=== PATIENT | female | born 1970 | race Caucasian/White ===

== ENCOUNTER 2021-07-05 07:39 | Day surgery (SDC) | payer BC ==
[2021-06-30 08:05] LABS: Hemoglobin 13.7 g/dL (12.0-15.5); Mean Corpuscular Hemoglobin 30.9 pg (27.0-33.0); Mean Corpuscular Volume 93.5 fl (81.6-98.3); Mean Platelet Volume 10.3 fl (7.4-10.4); Platelet Count 248 10x3/uL (150-450); RBC Distribution Width 12.6 % (11.5-14.5); Red Blood Cell (RBC) Count 4.44 10x6/uL (3.90-5.03); White Blood Cell (WBC) Count 5.3 10x3/uL (3.5-10.5)
[2021-06-30 08:24] LABS: BHCG - Serum Negative (NEGATIVE); Pregs Control Background? CLEAR/WHITE (CLR/WHITE); Pregs Control Bar Appear? YES (CONTROL BAR)
[2021-06-30 13:11] VITALS: BMI 35.4
[2021-06-30 20:46] LABS: SARS-CoV-2 PCR by NAA Not Detected (NotDetected)
[2021-07-05] MEDS ORDERED: Scopolamine 1.5 mg/72 hour Patch ONE (09:13)
[2021-07-05] MEDS ORDERED: Lidocaine 1% MPF 2 ML VIAL ONE (09:23)
[2021-07-05] MEDS ORDERED: PROPOFOL 20 ML ONE (09:51)
[2021-07-05] MEDS ORDERED: Fentanyl 100 MCG/2 ML VIAL ONE ×2 (09:51→10:43)
[2021-07-05] MEDS ORDERED: Dexamethasone 4 mg/ml Vial ONE (09:53)
[2021-07-05] MEDS ORDERED: Metoclopramide HCl 10 MG/2 ML VIAL ONE (09:53)
[2021-07-05] MEDS ORDERED: Lidocaine 1% PF 5 ML VIAL ONE (09:53)
[2021-07-05] MEDS ORDERED: Rocuronium Bromide 10 MG/ML (10ML VIAL) ONE (09:53)
[2021-07-05] MEDS ORDERED: Bupivacaine 0.25% HCL 30 ML VIAL ONE (09:59)
[2021-07-05] MEDS ORDERED: Bupivacaine PF 0.5% 30 ML VIAL ONE (09:59)
[2021-07-05] MEDS ORDERED: Midazolam HCl 2 mg/2 ml Vial ONE (09:59)
[2021-07-05] MEDS ORDERED: EPINEPHrine 1 MG/ML AMP ONE (09:59)
[2021-07-05] MEDS ORDERED: ceFAZolin 2 GM/Dextrose 50 ML IVPB ONE (10:10)
[2021-07-05] MEDS ORDERED: Ketorolac Tromethamine 30 MG/ML VIAL ONE (11:25)
[2021-07-05] MEDS ORDERED: Glycopyrrolate 0.2 MG/ML 5 ML SYRINGE ONE (11:25)
[2021-07-05] MEDS ORDERED: HYDROcodone/Acetaminophen 5/325 mg Tablet ONE (12:49)
== END 2021-07-05 13:10 | disposition home or self-care (01) ==
LOC: CSHSDC 07:39
PROVIDERS: ATTEND Obstetrics & Gynecology
PROC: 0FT44ZZ Resection of Gallbladder, Percutaneous Endoscopic Approach (ICD-10-PCS; principal; 2021-07-05)
PROC: 0UT14ZZ Resection of Left Ovary, Percutaneous Endoscopic Approach (ICD-10-PCS; principal; 2021-07-05)
PROC: 0UT64ZZ Resection of Left Fallopian Tube, Percutaneous Endoscopic Approach (ICD-10-PCS; principal; 2021-07-05)
PROC: 8E0W4CZ Robotic Assisted Procedure of Trunk Region, Percutaneous Endoscopic Approach (ICD-10-PCS; principal; 2021-07-05)
DX: D27.1 Benign neoplasm of left ovary (principal); K80.10 Calculus of gallbladder with chronic cholecystitis without obstruction; K21.9 Gastro-esophageal reflux disease without esophagitis; Z79.2 Long term (current) use of antibiotics; Z79.899 Other long term (current) drug therapy; Z20.822 Contact with and (suspected) exposure to COVID-19; G25.81 Restless legs syndrome
CPT/HCPCS: 36415; 84703; 85027; 86850; 86900; 86901; 88304; 88307; C1713; J0171; J0690; J1100; J1885; J2250; J2704; J2765; J3010; S0020; U0003; U0005

== ENCOUNTER 2025-01-08 04:33 | Emergency (ER) | payer BC, OTHER ==
[2025-01-08 04:56] LABS: #Basophils Less than 0.03 10x3/uL (0.0-0.2); #Eosinophils 0.11 10x3/uL (0.0-0.5); #Monocytes 0.95 10x3/uL (0.0-1.1); #Neutrophils 4.82 10x3/uL (1.5-8.4); %Basophils 0.3 % (0.0-2.0); %Eosinophils 1.5 % (0.0-6.0); %Lymphocytes 19.6 % (18.0-47.0); %Monocytes 12.9 % (0.0-10.0); %Neutrophils 65.6 % (40.0-75.0); Hematocrit 45.9 % (34.9-44.5); Hemoglobin 15.8 g/dL (12.0-15.5); Mean Corpuscular Hemoglobin 30.3 pg (27.0-33.0); Mean Corpuscular Volume 87.9 fL (81.6-98.3); Platelet Count 269 10x3/uL (150-450); Red Blood Cell (RBC) Count 5.22 10x6/uL (3.90-5.03); White Blood Cell (WBC) Count 7.35 10x3/uL (3.5-10.5)
[2025-01-08] MEDS ORDERED: Famotidine/PF 20 mg/2ml Vial ONE (04:56)
[2025-01-08 04:58] LABS: Glucose, Urine (Dipstick) Normal (Negative); Leukocyte Negative (Negative); Protein, Urine (Dipstick) 15 mg/dl (Neg-Trace); Specific Gravity, Urine 1.010 (1.005-1.030)
[2025-01-08 05:08] LABS: ALT (SGPT) 18 U/L (Less than 34); AST (SGOT) 22 U/L (11-34); Albumin 4.6 g/dL (3.1-4.5); Alkaline Phosphatase 108 U/L (40-110); Anion Gap 16 mmol/L (10-20); BUN (Urea Nitrogen) 10 mg/dL (9.8-20.1); Bilirubin, Total 0.6 mg/dL (0.3-1.2); Calc. Creatinine Clearance 0 mL/min (70-130); Calcium 9.6 mg/dL (7.8-10.44); Carbon Dioxide 18 mmol/L (22-29); Chloride 105 mmol/L (98-107); Globulin 2.7 g/dL (2.4-3.5); Glucose 98 mg/dL (70-105); Lipase 10 U/L (8-78); Potassium 3.3 mmol/L (3.5-5.1); Sodium 136 mmol/L (136-145)
[2025-01-08 05:14] LABS: Troponin I Less than 0.010 ng/mL (< 0.028)
[2025-01-08] MEDS ORDERED: Nitroglycerin 0.4 MG TAB 1 EACH ONE (06:05)
[2025-01-08] MEDS ORDERED: Ondansetron PF 4 MG/2 ML Vial ONE (06:16)
[2025-01-08 06:25] LABS: RBC/HPF 0-3 HPF (0-3)
[2025-01-08 06:26] LABS: Bacteria/HPF 3+ HPF (None Seen); CAUTI Indications for Culture Dysuria,urgency,freq; WBC/HPF 0-3 HPF (0-3)
[2025-01-08 06:27] LABS: Urine Culture Reflex No No
[2025-01-08 07:15] LABS: Troponin I Less than 0.010 ng/mL (< 0.028)
[2025-01-08] MEDS ORDERED: Lidocaine Viscous Sol 2% 15 ml UD Cup ONE (07:23)
[2025-01-08] MEDS ORDERED: Pantoprazole 40 MG VIAL ONE (07:23)
[2025-01-08] MEDS ORDERED: Mag-Al 1200 mg/1200 mg/30 ML UDCUP ONE (07:23)
== END 2025-01-08 09:21 | disposition home or self-care (01) ==
LOC: CSHERS 04:33
DX: K29.70 Gastritis, unspecified, without bleeding (principal); K20.90 Esophagitis, unspecified without bleeding; K21.9 Gastro-esophageal reflux disease without esophagitis
CPT/HCPCS: 36415; 71045; 71275; 80053; 81001; 83690; 83880; 84484; 85025; 85379; 87428; 93005; 94760; 96374; 96375; J1308; J2405; J2470